=== PATIENT | female | born 2005 | race Caucasian/White ===

== ENCOUNTER 2025-04-11 10:06 | Outpatient (CLI) | payer OTHER, SELFPAY | END 2025-04-11 10:07 | disposition home or self-care (01) | PROVIDERS: PCP Physician Assistant Medical; Visit Provider Physician Assistant Medical | DX: L20.9 Atopic dermatitis, unspecified (principal); D64.9 Anemia, unspecified; F41.9 Anxiety disorder, unspecified | CPT/HCPCS: 82306; 82607; 82728; 82784; 83540; 83550; 86231; 86258; 86364 ==